=== PATIENT | female | born 1965 | race African-American/Black ===

== ENCOUNTER 2024-03-03 06:30 | Inpatient (IN) | payer SELFPAY ==
[~2024-03-03] VITALS: Ht 165.1 cm; Wt 90.7 kg
[2024-03-03] VITALS (80 sets, daily range): BP systolic 85–222; BP diastolic 52–109; PULSE 32–86; RESP 20–28; TEMP 32.33592–34.1694; O2SAT 92–100
[2024-03-03] MEDS ORDERED: ACETAMINOPHEN 650MG/20.3ML UDC NG PRN (06:45)
[2024-03-03] MEDS ORDERED: ACETAMINOPHEN 650MG SUPP PR PRN (06:45)
[2024-03-03] MEDS: PROPOFOL 10MG/ML 100ML 100 ML IV ONE (06:55)
[2024-03-03] MEDS: NOREPINEPHRINE 8MG/250ML PMX 250 ML IV STA (06:57)
[2024-03-03 07:03] LABS: CHLORIDE 112 mEq/L (98-107); MEAN CORPUSCULAR HEMOGLOBIN 29.5 pg (28.0-32.0); MEAN CORPUSCULAR HGB CONC 28.6 g/dL (31.0-37.0); MEAN PLATELET VOLUME 10.9 fl (7.4-10.4); PLATELET 199 x1000/uL (130-400); POTASSIUM 4.7 mEq/L (3.5-5.1); RED BLOOD CELL COUNT 4.07 mill/uL (4.2-5.4); RED CELL DISTRIBUTION WIDTH 15.4 % (11.6-14.6); SODIUM 149 mEq/L (136-145); WHITE BLOOD COUNT 9.5 x1000/uL (4.5-11.0)
[2024-03-03 07:04] LABS: CARBON DIOXIDE 16 mEq/L (21-32)
[2024-03-03 07:05] LABS: CALCIUM 9.5 mg/dL (8.7-10.4)
[2024-03-03 07:09] LABS: CREATININE 1.9 mg/dL (0.6-1.0); UREA NITROGEN BLOOD 18 mg/dL (9-23)
[2024-03-03 07:11] LABS: ALANINE AMINOTRANSFERASE 35 IU/L (10-49); ALBUMIN 3.7 g/dL (3.2-4.8); ASPARTATE AMINOTRANSFERASE 37 IU/L (<34)
[2024-03-03 07:12] LABS: BILIRUBIN TOTAL 0.3 mg/dL (0.1-1.0); PROTEIN TOTAL 6.7 g/dL (6.0-8.3)
[2024-03-03 07:15] LABS: DIFFERENTIAL COMMENT 1
[2024-03-03 07:23] LABS: INR 1.2; PROTHROMBIN TIME 12.7 sec (9.6-11.0)
[2024-03-03 07:31] LABS: LACTIC ACID 19.1 mmol/L (0.4-2.0)
[2024-03-03 07:34] LABS: BILIRUBIN DIRECT < 0.1 mg/dL (<=3.0)
[2024-03-03 07:56] LABS: BG BASE EXCESS -18.3 mmol/L (-2.0-3.0); BG CARBOXYHEMOGLOBIN 1.4 % (0.5-1.5); BG DEOXYHEMOGLOBIN 1.2 % (0.0-5.0); BG FRACTION INSPIRED OXYGEN 100; BG METHEMOGLOBIN 0.3 % (0.5-1.5); BG OXYGEN SATURATION 98.8 % (94.0-98.0); BG OXYHEMOGLOBIN 97.1 % (94.0-98.0); BG PH 7.034 (7.350-7.450); BG PO2 215.1 mmHg (83.0-108.0); BG SAMPLE SITE LEFT RADIAL; BG TOTAL HEMOGLOBIN 12.4 g/dL (12.0-16.0); BG TOTAL RESPIRATORY RATE 20 b/min; BG VENT MODE VENT - AC
[2024-03-03 08:13] LABS: GLUCOSE 405 mg/dL (70-105)
[2024-03-03 08:14] LABS: PHOSPHORUS 9.3 mg/dL (2.5-4.9)
[2024-03-03 08:15] LABS: TROPONIN I HIGH SENSITIVITY 93 ng/L (3.0-34)
[2024-03-03] MEDS ORDERED: VANCOMYCIN 1G PREMIX 200 ML IV SCH (08:45)
[2024-03-03] MEDS ORDERED: ENOXAPARIN 40MG/0.4ML SYR SUBCUT SCH (09:00)
[2024-03-03] MEDS ORDERED: PIPERACILLIN/TAZO 3.375G/50ML 50 ML IV SCH (09:00)
[2024-03-03] MEDS: BLOOD SUGAR DIAGNOSTIC STRIP TEST SCH (10:00)
[2024-03-03] MEDS ORDERED: PROPOFOL 10MG/ML 100ML 100 ML IV PRN (10:00)
[2024-03-03] MEDS ORDERED: LEVETIRACETAM 500MG in NACL 100ML PREMIX IV SCH (10:00)
[2024-03-03] MEDS ORDERED: DEXTROSE 50% WATER 50ML SYRINGE IV PRN (10:00)
[2024-03-03] MEDS ORDERED: MANNITOL 20% (20GM/100ML) BAG 500ML PREMIX IV ONE (10:00)
[2024-03-03 10:07] LABS: NUCLEATED RED BLOOD CELLS 3 /100 WBC; PLATELET ESTIMATE NORMAL
[2024-03-03 10:38] LABS: T4 FREE 1.26 ng/dL (0.89-1.76); THYROID STIMULATING HORMONE 2.1 uIU/mL (0.55-4.78)
[2024-03-03] MEDS: VANCOMYCIN 1.5GM/250ML 250 ML IV SCH (11:07)
[2024-03-03] MEDS: PIPERACILLIN/TAZO 3.375G/50ML 50 ML IV SCH (11:07)
[2024-03-03] MEDS: LEVETIRACETAM 500MG PREMIX 100 ML IV SCH (11:08)
[2024-03-03] MEDS: DEXT 5%/LACTATED RINGERS 1,000 ML IV SCH (11:09)
[2024-03-03] MEDS: MANNITOL 20% 250 ML IV NR (11:09)
[2024-03-03] MEDS: PANTOPRAZOLE SODIUM 40 MG/VIAL IV SCH (11:28)
[2024-03-03] MEDS: SODIUM BICARBONATE 8.4% 50MEQ/50ML SYR IV NR (11:30)
[2024-03-03] MEDS: INSULIN LISPRO 100 UNITS/ML SUBCUT SCH (12:00)
[2024-03-03 12:44] LABS: CHLORIDE 112 mEq/L (98-107); POTASSIUM 4.2 mEq/L (3.5-5.1); SODIUM 143 mEq/L (136-145)
[2024-03-03 12:45] LABS: CARBON DIOXIDE 27 mEq/L (21-32)
[2024-03-03 12:46] LABS: CALCIUM 7.8 mg/dL (8.7-10.4)
[2024-03-03 12:50] LABS: CREATININE 1.8 mg/dL (0.6-1.0); GLUCOSE 99 mg/dL (70-105); UREA NITROGEN BLOOD 23 mg/dL (9-23)
[2024-03-03 12:52] LABS: ALANINE AMINOTRANSFERASE 109 IU/L (10-49); ASPARTATE AMINOTRANSFERASE 142 IU/L (<34)
[2024-03-03 12:53] LABS: BILIRUBIN TOTAL 0.3 mg/dL (0.1-1.0); PROTEIN TOTAL 5.5 g/dL (6.0-8.3)
[2024-03-03 13:06] LABS: TROPONIN I HIGH SENSITIVITY 1127 ng/L (3.0-34)
[2024-03-03 13:10] LABS: BG BASE EXCESS 0.5 mmol/L (-2.0-3.0); BG DEOXYHEMOGLOBIN 4.6 % (0.0-5.0); BG FRACTION INSPIRED OXYGEN 40; BG HCO3 ACT 22.7 mmol/L (21.0-28.0); BG METHEMOGLOBIN 0.3 % (0.5-1.5); BG OXYGEN SATURATION 95.3 % (94.0-98.0); BG OXYHEMOGLOBIN 94.1 % (94.0-98.0); BG PCO2 28.6 mmHg (32.0-45.0); BG PH 7.517 (7.350-7.450); BG PO2 69.4 mmHg (83.0-108.0); BG SAMPLE SITE RIGHT RADIAL; BG TOTAL HEMOGLOBIN 11.2 g/dL (12.0-16.0); BG TOTAL RESPIRATORY RATE 26 b/min; BG VENT MODE VENT - AC
[2024-03-03 15:45] LABS: TROPONIN I HIGH SENSITIVITY 1648 ng/L (3.0-34)
[2024-03-03 19:05] LABS: CLARITY URINE CLOUDY (CLEAR); COLOR URINE YELLOW (YELLOW); GLUCOSE URINE NEGATIVE (NEGATIVE); KETONES URINE NEGATIVE (NEGATIVE); LEUKOCYTE ESTERASE URINE NEGATIVE (NEGATIVE); NITRITE URINE NEGATIVE (NEGATIVE); OCCULT BLOOD URINE 2+ (NEGATIVE); PH URINE 6.5 (4.5-8.0); PROTEIN URINE 1+ (NEGATIVE)
[2024-03-03 19:18] LABS: *AMPHETAMINES SCREEN URINE NEGATIVE (NEGATIVE); *BARBITURATES SCREEN URINE NEGATIVE (NEGATIVE); *BENZODIAZEPINES SCREEN URINE NEGATIVE (NEGATIVE); *COCAINE SCREEN URINE NEGATIVE (NEGATIVE); CANNABINOID URINE SCREEN NEGATIVE (NEGATIVE); METHADONE URINE SCREEN NEGATIVE (NEGATIVE); OPIATES URINE SCREEN NEGATIVE (NEGATIVE); PHENCYCLIDINE URINE SCREEN NEGATIVE (NEGATIVE)
[2024-03-03 19:19] LABS: ECSTASY MDMA SCREEN URINE NEGATIVE (NEGATIVE)
[2024-03-03] MEDS: DOPAMINE 800MG PREMIX (DOUBLE) 250 ML IV PRN (19:52)
[2024-03-03 20:05] LABS: BACTERIA URINE 2+; SQUAMOUS EPITHELIAL CELL URINE 1+ /lpf (RARE/1+); WBC URINE 0-2 /hpf (0-2)
[2024-03-03 23:20] LABS: HEMATOCRIT 35.9 % (36.0-48.0); HEMOGLOBIN 11.9 g/dL (12.0-16.0); MEAN CORPUSCULAR HEMOGLOBIN 29.4 pg (28.0-32.0); MEAN CORPUSCULAR HGB CONC 33.1 g/dL (31.0-37.0); PLATELET 173 x1000/uL (130-400); RED BLOOD CELL COUNT 4.03 mill/uL (4.2-5.4); RED CELL DISTRIBUTION WIDTH 15.2 % (11.6-14.6); WHITE BLOOD COUNT 9.1 x1000/uL (4.5-11.0)
[2024-03-03 23:43] LABS: TROPONIN I HIGH SENSITIVITY 2931 ng/L (3.0-34)
[2024-03-04] VITALS (106 sets, daily range): BP systolic 90–219; BP diastolic 50–89; PULSE 43–95; RESP 16–26; TEMP 33.22488–37.2252; O2SAT 95–100
[2024-03-04 05:59] LABS: POTASSIUM 3.4 mEq/L (3.5-5.1)
[2024-03-04 06:00] LABS: CALCIUM 8.7 mg/dL (8.7-10.4)
[2024-03-04 06:05] LABS: CREATININE 2.2 mg/dL (0.6-1.0)
[2024-03-04 06:09] LABS: HEMATOCRIT 34.6 % (36.0-48.0); HEMOGLOBIN 11.8 g/dL (12.0-16.0); MEAN CORPUSCULAR HEMOGLOBIN 29.8 pg (28.0-32.0); MEAN CORPUSCULAR VOLUME 87.6 fL (81.0-99.0); PLATELET 187 x1000/uL (130-400); RED BLOOD CELL COUNT 3.95 mill/uL (4.2-5.4); RED CELL DISTRIBUTION WIDTH 14.7 % (11.6-14.6); WHITE BLOOD COUNT 7.8 x1000/uL (4.5-11.0)
[2024-03-04 12:20] LABS: HEMATOCRIT 34.5 % (36.0-48.0); HEMOGLOBIN 11.1 g/dL (12.0-16.0); MEAN CORPUSCULAR HEMOGLOBIN 28.8 pg (28.0-32.0); MEAN CORPUSCULAR HGB CONC 32.3 g/dL (31.0-37.0); MEAN CORPUSCULAR VOLUME 89.3 fL (81.0-99.0); PLATELET 175 x1000/uL (130-400); RED BLOOD CELL COUNT 3.86 mill/uL (4.2-5.4); RED CELL DISTRIBUTION WIDTH 14.7 % (11.6-14.6); WHITE BLOOD COUNT 7.3 x1000/uL (4.5-11.0)
[2024-03-04] MEDS: KCL 20MEQ/100ML PREMIX 100 ML IV ONE (16:56)
[2024-03-04] MEDS: NICARDIPINE 40MG/200ML PREMIX 200 ML IV PRN (16:56)
[2024-03-04 17:14] LABS: BG BASE EXCESS 0.7 mmol/L (-2.0-3.0); BG CARBOXYHEMOGLOBIN 0.3 % (0.5-1.5); BG DEOXYHEMOGLOBIN 0.5 % (0.0-5.0); BG FRACTION INSPIRED OXYGEN 100; BG HCO3 ACT 22.2 mmol/L (21.0-28.0); BG METHEMOGLOBIN 0.3 % (0.5-1.5); BG OXYGEN SATURATION 99.5 % (94.0-98.0); BG OXYHEMOGLOBIN 98.9 % (94.0-98.0); BG PCO2 27.2 mmHg (32.0-45.0); BG PO2 285.4 mmHg (83.0-108.0); BG SAMPLE SITE LEFT RADIAL; BG VENT MODE VENT - AC
[2024-03-05] VITALS (45 sets, daily range): BP systolic 91–109; BP diastolic 47–61; PULSE 42–56; RESP 16; TEMP 35.72508–36.89184; O2SAT 94–100
[2024-03-05] MEDS: INSULIN LISPRO 100 UNITS/ML SUBCUT SCH (05:21)
[2024-03-05 13:09] LABS: POTASSIUM 3.6 mEq/L (3.5-5.1)
[2024-03-05 13:10] LABS: CALCIUM 8.8 mg/dL (8.7-10.4)
[2024-03-05 13:11] LABS: BG BASE EXCESS -1.3 mmol/L (-2.0-3.0); BG CARBOXYHEMOGLOBIN 0.3 % (0.5-1.5); BG DEOXYHEMOGLOBIN 0.6 % (0.0-5.0); BG FRACTION INSPIRED OXYGEN 100; BG HCO3 ACT 22.6 mmol/L (21.0-28.0); BG METHEMOGLOBIN 0.3 % (0.5-1.5); BG OXYGEN SATURATION 99.4 % (94.0-98.0); BG OXYHEMOGLOBIN 98.8 % (94.0-98.0); BG PCO2 35.1 mmHg (32.0-45.0); BG PH 7.427 (7.350-7.450); BG PO2 227.5 mmHg (83.0-108.0); BG SAMPLE SITE RIGHT RADIAL; BG VENT MODE VENT - AC
[2024-03-05 13:15] LABS: CREATININE 2.6 mg/dL (0.6-1.0)
[2024-03-05 13:20] LABS: BASOPHILS % 0.1 % (0.0-2.0); EOSINOPHILS % 1.3 % (0.0-5.0); HEMOGLOBIN. 10.7 g/dL (12.0-16.0); LYMPHOCYTES % 10.7 % (20.0-50.0); MEAN CORPUSCULAR HEMOGLOBIN 29.5 pg (28.0-32.0); MEAN CORPUSCULAR HGB CONC 32.3 g/dL (31.0-37.0); MEAN CORPUSCULAR VOLUME 91.2 fL (81.0-99.0); MONOCYTES % 4.8 % (2.0-8.0); NEUTROPHILS % 83.1 % (40.0-76.0); PLATELET 139 x1000/uL (130-400); RED BLOOD CELL COUNT 3.62 mill/uL (4.2-5.4); RED CELL DISTRIBUTION WIDTH 15.6 % (11.6-14.6); WHITE BLOOD COUNT 8.2 x1000/uL (4.5-11.0)
[2024-03-05] MEDS: DEXTROSE 5% WATER 1,000 ML IV SCH (14:00)
== END 2024-03-05 19:15 | DRG 133 ==
LOC: ER 06:30 → EDBD 06:30 → MICUSO 08:00
PROVIDERS: ADMIT Internal Medicine; ATTEND Internal Medicine
PROC: 5A1945Z Respiratory Ventilation, 24-96 Consecutive Hours (ICD-10-PCS; principal; 2024-03-03)
PROC: 0BH17EZ Insertion of Endotracheal Airway into Trachea, Via Natural or Artificial Opening (ICD-10-PCS; 2024-03-03)
PROC: 02HV33Z Insertion of Infusion Device into Superior Vena Cava, Percutaneous Approach (ICD-10-PCS; 2024-03-03)
PROC: B548ZZA Ultrasonography of Superior Vena Cava, Guidance (ICD-10-PCS; 2024-03-03)
DX: J96.01 Acute respiratory failure with hypoxia (principal); I46.9 Cardiac arrest, cause unspecified; G93.6 Cerebral edema; I60.9 Nontraumatic subarachnoid hemorrhage, unspecified; G92.8 Other toxic encephalopathy; J69.0 Pneumonitis due to inhalation of food and vomit; K92.2 Gastrointestinal hemorrhage, unspecified; I67.82 Cerebral ischemia; I21.A1 Myocardial infarction type 2; E87.20 Acidosis, unspecified; I50.9 Heart failure, unspecified; R00.1 Bradycardia, unspecified; I61.5 Nontraumatic intracerebral hemorrhage, intraventricular; I95.9 Hypotension, unspecified; R40.2430 Glasgow coma scale score 3-8, unspecified time; F17.210 Nicotine dependence, cigarettes, uncomplicated; Z91.010 Allergy to peanuts; Z82.49 Family history of ischemic heart disease and other diseases of the circulatory system
CPT/HCPCS: 31500; 36415; 36600; 71045; 78610; 80048; 80053; 80076; 80202; 80305; 81003; 82010; 82375; 82805; 82962; 83036; 83605; 83735; 84100; 84145; 84439; 84443; 84478; 84484; 85025; 85027; 86850; 86900; 93005; 93306; 93880; 93970; 94003; 99291; A9512; J1265; J1953; J2470; J2543; J2704; J3370; J3480; J3490; J7070; J7121